=== PATIENT | male | born 1935 | race Caucasian/White ===

== ENCOUNTER 2016-08-11 17:15 | Emergency (ER) | payer OTHER ==
--- NOTE | ~2016-08-11 | CT71 ---
[facility] A Service of [facility] RADIOLOGY TEXT RESULTS PATIENT: LYNDSAY MENDIOLA LOCATION: SED : 37 UNIT #: [id number] AGE: [address]: Jodi Gutierrez MD SEX: M ORDER DR: [id number] [place] [address] [id number] E MR#: [id number] Acc #: [id number] NAME: LYNDSAY MENDIOLA. : 1935 SEX: M STUDY DATE/TIME: 08/11/2016 16:17 UNIT: SED ROOM: STUDY DESCRIPTION: CT Head Wo Contrast Attending Physician: Jodi Gutierrez M.D. Ordering Physician: Jodi Gutierrez M.D. Primary Care Physician: Kwesi Gomes M.D. MEDICAL IMAGING REPORT This report is preliminary unless electronic signature is present. EXAM Head CT without. HISTORY Pain, lightheadedness, hypertension, dizziness since last night. TECHNIQUE This CT exam was performed with one or more of the following radiation dose reduction techniques: automatic exposure control, adjustment of mA and/or kV according to patient size, and iterative reconstruction. COMPARISON 02/27/2016 COMMENT Routine noncontrast head CT is reviewed. FINDINGS There is no displaced calvarial fracture. The visualized mastoid air cells are clear. The visualized paranasal sinuses show minor mucosal thickening in the ethmoid air cells but there is no air fluid level. Abnormal low attenuation seen in the right frontal centrum semiovale, chronic and in the left anterolateral basal ganglia, chronic. Mild periventricular white matter low attenuation noted, chronic. These are probable changes of small vessel disease. There is no extraaxial fluid collection, acute intracranial hemorrhage or intracranial mass effect. No acute cortical infarct is appreciated but if this is the clinical concern, followup imaging is recommended preferably with an MRI if the patient is a candidate. The patient has had cataract surgery bilaterally. IMPRESSION [facility] A Service of [facility] RADIOLOGY TEXT RESULTS PATIENT: LYNDSAY MENDIOLA LOCATION: SED : 37 UNIT #: [id number] AGE: [address]: Jodi Gutierrez MD SEX: M ORDER DR: 1. No acute intracranial abnormality is appreciated but if there is clinical concern for acute CVA, followup imaging is recommended preferably with an MRI. 2. Probable sequelae of small vessel disease not changed from 2016. Dictated by... Nayana Fontana M.D. THIS IS AN ELECTRONICALLY VERIFIED REPORT Nayana Fontana M.D. at 08/13/2016 7:45 AM CARISSA/blanca TD: 08/12/2016 19:38 JOB #: [id number] MEDICAL IMAGING REPORT
--- NOTE | ~2016-08-11 | CT23 ---
[facility] A Service [facility] RADIOLOGY TEXT RESULTS PATIENT: LYNDSAY MENDIOLA LOCATION: SED : 37 UNIT #: [id number] AGE: [address]: Jodi Gutierrez MD SEX: M ORDER DR: [id number] [place] [address] [id number] E MR#: [id number] Acc #: [id number] NAME: LYNDSAY MENDIOLA. : 1935 SEX: M STUDY DATE/TIME: 08/11/2016 14:48 UNIT: SED ROOM: STUDY DESCRIPTION: CT Angio Neck Attending Physician: Jodi Gutierrez M.D. Ordering Physician: Jodi Gutierrez M.D. Primary Care Physician: Kwesi Gomes M.D. MEDICAL IMAGING REPORT This report is preliminary unless electronic signature is present. EXAM CT angiogram of the neck. DATE OF EXAM 08/11/2016 HISTORY Light-headed, hypertension, and dizziness since last night. COMMENT CT angiography of the head and neck vessels performed during the intravenous administration of 100 mL of Isovue-370 with imaging acquired in the axial plane followed by multiple reconstructed and reformatted images for the purpose of 3-D CT angiography of the head and neck vessels. COMPARISON Earlier noncontrast head CT. Previous CT angiogram of the head and neck vessels from 2016. TECHNIQUE NOTE: This CT exam was performed with one or more of the following radiation dose reduction techniques: automatic exposure control, adjustment of mA and/or kV according to patient size, and iterative reconstruction. FINDINGS Please see CT angiogram of head/neck for results performed 08/11/2016. STAT * RESULT [facility] A Service [facility] RADIOLOGY TEXT RESULTS PATIENT: LYNDSAY MENDIOLA LOCATION: SED : 37 UNIT #: [id number] AGE: [address]: Jodi Gutierrez MD SEX: M ORDER DR: Dictated by... Nayana Fontana M.D. THIS IS AN ELECTRONICALLY VERIFIED REPORT Nayana Fontana M.D. at 08/11/2016 10:22 PM CARISSA/betsy TD: 08/11/2016 17:42 JOB #: [id number] MEDICAL IMAGING REPORT
--- NOTE | ~2016-08-11 | EKG ---
PATIENT: LYNDSAY MENDIOLA UNIT #: [id number] Ventricular Rate: 61 BPM Atrial Rate: 61 BPM P-R Interval: 152 ms QRS Duration: 96 ms Q-T Interval: 428 ms QTC Calculation(Bezet): 430 ms P [place]: -17 degrees Calculated R [place]: -24 degrees Calculated T [place]: -12 degrees Diagnosis Line: Normal sinus rhythm with sinus arrhythmia Diagnosis Line: Voltage criteria for left ventricular hypertrophy Diagnosis Line: Abnormal ECG Baseline wander Diagnosis Line: When compared with ECG of 27-FEB-2016 12:13, Diagnosis Line: No significant change was found Diagnosis Line: Confirmed by RADHA VERNON MD ([id number]) on 08/17/2016 Diagnosis Line: 9:37:16 AM INTERPRETING MD: JANEEN ANN
--- NOTE | ~2016-08-11 | CR72 ---
[facility] A Service of [facility] RADIOLOGY TEXT RESULTS PATIENT: LYNDSAY MENDIOLA LOCATION: SED : 37 UNIT #: [id number] AGE: [address]: Jodi Gutierrez MD SEX: M ORDER DR: [id number] [place] [id number] E MR#: [id number] Acc #: [id number] NAME: LYNDSAY MENDIOLA. : 1935 SEX: M STUDY DATE/TIME: 08/11/2016 16:25 UNIT: SED ROOM: STUDY DESCRIPTION: CR Chest Single View Portable Attending Physician: Jodi Gutierrez M.D. Ordering Physician: Jodi Gutierrez M.D. Primary Care Physician: Kwesi Gomes M.D. MEDICAL IMAGING REPORT This report is preliminary unless electronic signature is present. EXAM Portable chest, 08/11/2016 HISTORY Dizzy, lightheaded and hypertensive today. FINDINGS Mild cardiac enlargement. Prominent and tortuous thoracic aorta. Mild vascular congestion. No airspace infiltrates. No pleural effusions. Moderate mid-right thoracic curve. IMPRESSION 1. No acute findings. 2. Mild cardiac enlargement and vascular congestion. 3. Mildly prominent and tortuous thoracic aorta. Dictated by... Keenan Meek M.D. THIS IS AN ELECTRONICALLY VERIFIED REPORT Keenan Meek M.D. at 08/12/2016 10:46 PM DFL/maxx TD: 08/12/2016 21:39 JOB #: [id number] MEDICAL IMAGING REPORT
--- NOTE | ~2016-08-11 | CT17 ---
[facility] A Service of [facility] RADIOLOGY TEXT RESULTS PATIENT: LYNDSAY MENDIOLA LOCATION: SED : 37 UNIT #: [id number] AGE: [address]: Jodi Gutierrez MD SEX: M ORDER DR: [id number] [place] [address] [id number] E MR#: [id number] Acc #: [id number] NAME: LYNDSAY MENDIOLA. : 1935 SEX: M STUDY DATE/TIME: 08/11/2016 14:48 UNIT: SED ROOM: STUDY DESCRIPTION: CT Angio Head Attending Physician: Jodi Gutierrez M.D. Ordering Physician: Jodi Gutierrez M.D. Primary Care Physician: Kwesi Gomes M.D. MEDICAL IMAGING REPORT This report is preliminary unless electronic signature is present. EXAM CT angiogram of the head and neck. DATE OF EXAM 08/11/2016 HISTORY Light-headed, hypertension, and dizziness since last night. COMMENT CT angiography of the head and neck vessels performed during the intravenous administration of 100 mL of Isovue-370 with imaging acquired in the axial plane followed by multiple reconstructed and reformatted images for the purpose of 3-D CT angiography of the head and neck vessels. COMPARISON Earlier noncontrast head CT. Previous CT angiogram of the head and neck vessels from 2016. TECHNIQUE NOTE: This CT exam was performed with one or more of the following radiation dose reduction techniques: automatic exposure control, adjustment of mA and/or kV according to patient size, and iterative reconstruction. FINDINGS CT ANGIOGRAM NECK: There is considerable ectasia of the aortic arch. Vascular calcifications are present. There is no hemodynamically-significant narrowing at great vessel origins from the arch. The great vessels are tortuous. Evaluation of the right carotid system shows noncalcified plaque at the right carotid bifurcation. Minimal calcified plaque seen. By NASCET [facility] A Service of [facility] RADIOLOGY TEXT RESULTS PATIENT: LYNDSAY MENDIOLA LOCATION: SED : 37 UNIT #: [id number] AGE: [address]: Jodi Gutierrez MD SEX: M ORDER DR: criteria, 0% diameter stenosis. Mild calcified plaque at the precavernous internal carotid artery on the right with mild narrowing. Evaluation of the left carotid system shows largely noncalcified plaque at the bifurcation and proximal left internal carotid artery. By NASCET criteria, there is about 25% diameter stenosis. The left carotid siphon is widely patent. Evaluation of the right vertebral artery shows noncalcified plaque at the origin, resulting in about 5 mm in length stenosis which is probably fairly high-grade. Otherwise, the right vertebral artery is patent throughout the neck, and in its intracranial portion. On the left side, there also appears to be stenosis at the origin of the left vertebral artery, best appreciated on source imaging where there is partially calcified plaque, and probably fairly high-grade stenosis. Otherwise, the left vertebral artery is patent in the neck and intracranially. Please correlate for clinical evidence of vertebrobasilar insufficiency. If the patient is candidate for intervention, correlation with conventional angiogram would be suggested. Evaluation of the intracranial circulation shows no intracranial vascular cutoff. There is an anterior communicating artery present. No focal central stenosis is seen. The dural venous sinuses are patent. I believe there is a tiny right posterior communicator. Probably a small infundibulum at its origin. No suspicion for intracranial aneurysm allowing for the technical limitation of CT angiography for evaluation for aneurysm at the level of the skull base. Small areas of low attenuation in the thyroid gland are best assessed further with a nonemergent thyroid ultrasound. There is some artifact from dental metal. The patient has had cataract surgery bilaterally. Small amount of scarring or atelectasis right upper lung posteriorly. Cervical spine degenerative changes. IMPRESSION 1. By NASCET criteria, about 25% diameter stenosis of proximal left internal carotid artery. 2. 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 Both are patent, otherwise, throughout the neck and fairly codominant. If the patient is candidate for intervention, consider correlation with conventional angiogram to determine the actual degree of stenosis. Please correlate for any clinical concern for vertebrobasilar insufficiency. 3. There is no intracranial vascular cutoff. No focal intracranial stenosis is appreciated. 4. Heterogeneity of the thyroid gland is best pursued with marked thyroid ultrasound. STAT * RESULT [facility]. [facility] A Service of [facility] RADIOLOGY TEXT RESULTS PATIENT: LYNDSAY MENDIOLA LOCATION: [facility] [place] : 37 UNIT #: [id number] AGE: [address]: Jodi Gutierrez MD SEX: M ORDER DR: Dictated by... Nayana Fontana M.D. THIS IS AN ELECTRONICALLY VERIFIED REPORT Nayana Fontana M.D. at 08/11/2016 10:22 PM CARISSA/betsy TD: 08/11/2016 17:32 JOB #: [id number] MEDICAL IMAGING REPORT
[2016-08-11 15:26] LABS: BASOPHIL% 0.2 % (0-2.5); EOSINOPHIL% 0.5 % (0.0-7.0); HEMATOCRIT 40.6 % (38.0-50.0); HEMOGLOBIN 14.1 gm/dL (13.0-16.0); LYMPHOCYTE# 0.8 X10e3 (1.0-3.5); LYMPHOCYTE% 13.9 % (17.0-45.0); MEAN CELL VOLUME 84.8 FL (83-96); MEAN CORPUSCULAR HEMOGLOBIN 29.4 PG (28-34); MEAN CORPUSCULAR HGB CONC 34.6 g/dL (30-36); MEAN PLATELET VOLUME 7.3 FL (6.5-11.5); MONOCYTE# 0.5 X10e3 (0-1.0); MONOCYTE% 7.9 % (3.0-12.0); NEUTROPHIL# 4.5 X10e3 (1.5-7.1); NEUTROPHIL% 77.5 % (40-75); PLATELET COUNT 133 X10e3 (140-420); RED BLOOD COUNT 4.79 X10e (3.90-5.60); RED CELL DISTRIBUTION WIDTH 14.2 % (11.0-15.5); WHITE BLOOD COUNT 5.8 X10e3 (4.0-10.5)
[2016-08-11 15:34] LABS: DIFF IND NO
[2016-08-11 15:36] LABS: POC - CKMB 1.7 ng/mL (0.0-7.9); POC - MYOGLOBIN 91.5 ng/mL (0.0-169.0)
[2016-08-11 15:37] LABS: POC - TROPONIN <0.05 ng/mL (<=0.05)
[2016-08-11 15:45] LABS: ALBUMIN SERUM 4.5 g/dL (3.5-5.0); ALKALINE PHOSPHATASE 105 U/L (32-92); ALT (SGPT) 20 U/L (10-40); AST (SGOT) 18 U/L (10-42); BILIRUBIN, DIRECT 0.1 mg/dL (0.0-0.2); BILIRUBIN,INDIRECT 0.5 mg/dL (0.0-0.9); BILIRUBIN,TOTAL 0.6 mg/dL (0.2-2.0); BLOOD UREA NITROGEN 28 mg/dL (9-23); CALCIUM SERUM 8.9 mg/dL (8.4-10.2); CARBON DIOXIDE 24 mmol/L (22-31); CHLORIDE 110 mmol/L (100-111); GLOM FILT RATE Estimated ABOVE60 mL/min (>60); GLUCOSE FASTING 115 mg/dL (70-110); POTASSIUM 3.9 mmol/L (3.5-5.1); PROTEIN TOTAL SERUM 7.2 g/dL (6.0-8.3); SODIUM 140 mmol/L (135-145)
[2016-08-11 15:46] LABS: URINE APPEARANCE CLEAR; URINE BILIRUBIN NEG (NEG); URINE BLOOD NEG (NEG); URINE COLOR YELLOW; URINE GLUCOSE NEG (NORM); URINE KETONE NEG (NEG); URINE LEUKOCYTE ESTERASE NEG (NEG); URINE NITRATE NEG (NEG); URINE PROTEIN NEG (NEG); URINE SPECIFIC GRAVITY 1.025 (1.003-1.035); URINE UROBILINOGEN 0.2 MG/DL (NORM)
[2016-08-11 15:47] LABS: MICRO INDICATED? NO; URINE SOURCE CLEAN CATCH
[2016-08-11 17:11] LABS: POC - CKMB 1.6 ng/mL (0.0-7.9)
[2016-08-11 17:12] LABS: POC - MYOGLOBIN 73.7 ng/mL (0.0-169.0); POC - TROPONIN <0.05 ng/mL (<=0.05)
[~2016-08-11 17:15] MED LIST: ALPRAZOLAM1 M1 PO; AMLODIPINE BESYL5 MG PO; ASPIRIN81 MG PO; CELEXA10 MG; CLOPIDOGREL BIS75 MG; CRESTOR40 MG PO; FLOMAX0.4 M1 PO; HYDROCODON-ACE1 EAC7 PO; LISINOPRIL-HCTZ1 T14 PO; OSTEO BI-FLEX1 EACH PO; TOPROL XL PO; ZOFRAN ODT4 MG/UDTAB PO
== END 2016-08-11 19:03 | disposition hospice, home (50) ==
LOC: SED 17:15
PROVIDERS: Student in an Organized Health Care Education/Training Program
DX: R27.0 Ataxia, unspecified (principal); Z86.73 Personal history of transient ischemic attack (TIA), and cerebral infarction without residual deficits; I10 Essential (primary) hypertension
CPT/HCPCS: 36415; 70450; 70496; 70498; 71010; 80048; 80076; 81003; 82553; 82947; 83874; 84484; 85025; 93005; 99285; Q9967